=== PATIENT | female | born 1970 | race Caucasian/White ===

== ENCOUNTER 2023-10-14 19:23 | Emergency (ER) | payer MEDICAID, OTHER ==
[~2023-10-14] VITALS: Ht 165.1 cm; Wt 108.9 kg
[2023-10-14 19:29] VITALS: BP 150/89; PULSE 88; RESP 18; TEMP 98; O2SAT 98
[2023-10-14] MEDS: LIDOCAINE 5% 1 EA PATCH TP ONE (20:02)
[2023-10-14] MEDS: KETOROLAC 30 MG/ML VIAL IM ONE (20:03)
[2023-10-14] MEDS ORDERED: CYCL-711 PO (20:06)
[2023-10-14] MEDS ORDERED: AMOX500C25 PO (20:06)
[2023-10-14] MEDS ORDERED: LID5T TP (20:06)
[2023-10-14] MEDS ORDERED: NAPR-337 PO (20:06)
[2023-10-14 20:38] VITALS: BP 150/89; PULSE 88; RESP 18; TEMP 98; O2SAT 98
== END 2023-10-14 20:38 | disposition home or self-care (01) ==
LOC: MED 19:23
DX: M79.605 Pain in left leg (principal); H66.92 Otitis media, unspecified, left ear; R03.0 Elevated blood-pressure reading, without diagnosis of hypertension; E11.9 Type 2 diabetes mellitus without complications; Z79.1 Long term (current) use of non-steroidal anti-inflammatories (NSAID); Z79.899 Other long term (current) drug therapy
CPT/HCPCS: 96372; 99283; J1885